=== PATIENT | male | born 1990 | race Caucasian/White ===

== ENCOUNTER 2016-11-23 14:19 | Emergency (ER) | payer SELFPAY ==
[~2016-11-23] VITALS: Ht 182.9 cm; Wt 76.7 kg
[2016-11-23] MEDS ORDERED: CLIN300C8 PO (14:49)
[2016-11-23] MEDS ORDERED: MUPI15CR TP (14:49)
--- NOTE | 2016-11-23 14:54 | PHYS DOC ---
General Chief Complaint: SKIN PROBLEM Stated Complaint: SKIN PROBLEM Time Seen by MD: 14:46 Source: patient Exam Limitations: no limitations Problems: History of Present Illness Initial Comments Patient is a 25-year-old male who comes to the ED complaining of adverse medication reaction. Patient states that he was seen at [place] emergency department 3 days ago diagnosed with MRSA lesion on his lower lip. He was prescribed Bactrim DS but states he has vomited after taking that medication for the past 2 days. He says the lip lesion has improved with what medication he was able to keep down however he is requesting an alternate drug which will not cause nausea. He says he's tried taking it with food and that his mother has GI intolerance to the medication as well. He denies any new or progressive symptoms related to the lip lesion, fever chills sweats or body aches. No other complaints his vital signs are stable in the emergency department. Timing/Duration: getting worse (3 days) Severity: moderate Modifying Factors: worse with medication Associated Symptoms: nausea/vomiting, rash Allergies: Coded Allergies: sulfamethoxazole (Verified Allergy, Unknown, vomiting, 11/23/16) trimethoprim (Verified Allergy, Unknown, vomiting, 11/23/16) Past Medical History Medical History: no pertinent history Surgical History: noncontributory Social History Smoker: cigarettes Alcohol: sober Drugs: marijuana Review of Systems Constitutional: denies chills, denies fever EENTM: see HPI Respiratory: denies cough, denies shortness of breath Cardiovascular: denies chest pain, denies palpitations Gastrointestinal: see HPI Genitourinary: denies frequency, denies hematuria Psychiatric/Neurological: denies headache, denies numbness, denies paresthesia Physical Exam General Appearance: WD/WN, no apparent distress Eyes: bilateral eye normal inspection, bilateral eye PERRL, bilateral eye EOMI Ear, Nose, Throat: hearing grossly normal, normal pharynx (0.5 cm tender scabbed lesion at the lower lip with mild soft tissue swelling no discharge or airway compromise) Neck: non-tender, supple Respiratory: normal breath sounds, no respiratory distress Gastrointestinal: non tender, soft Extremities: non-tender, normal inspection Neurologic/Psychiatric: alert, normal mood/affect, oriented x 3 Skin: normal color, warm/dry Departure Time of Disposition: 14:51 Disposition: 01 HOME, SELF-CARE Diagnosis: Drug reaction GI intolerance, MRSA lesion tobaccoi Condition: GOOD Patient Instructions: Drug Reaction, GI Intolerance, MRSA Overview, Smoking Cessation Additional Instructions: Discontinue tobacco and marijuana abuse, seek medical assistance if necessary. Discontinue Bactrim. Prescription: Clindamycin, Bactroban ointment Take medications with food to avoid adverse GI effects. Follow-up with a doctor in 5-7 days for recheck. Return to ED with new or changing symptoms. CONOR CEJA DO Nov 23, 2016 14:54
[2016-11-23 15:00] VITALS: BP 128/70
== END 2016-11-23 15:00 | disposition home or self-care (01) ==
LOC: ER 14:19
DX: T37.0X5A Adverse effect of sulfonamides, initial encounter (principal); K52.29 Other allergic and dietetic gastroenteritis and colitis; F17.210 Nicotine dependence, cigarettes, uncomplicated; Z88.1 Allergy status to other antibiotic agents; Y92.89 Other specified places as the place of occurrence of the external cause
CPT/HCPCS: 99283